=== PATIENT | female | born 1940 | race Caucasian/White ===

== ENCOUNTER 2021-04-26 16:58 | Emergency (ER) | payer MEDICARE ==
[~2021-04-26] VITALS: Ht 152.4 cm; Wt 58.5 kg
[~2021-04-26 16:58] MED LIST: AMARYL2 MG; ASPIRIN EC81 M1; GLUCOPHAGE850 MG; LEXAPRO 10 MG T10 M1; LISINOPRIL10 MG; SIMVASTATIN5 MG; VERAPAMIL E.R240 M1
[2021-04-26] MEDS ORDERED: HYDROCODON-ACE1 EAC7 PO (19:05)
[2021-04-26] MEDS ORDERED: NYSTATIN 100,0015 G1 TOP (19:07)
[2021-04-26 19:18] VITALS: BP 120/70
== END 2021-04-26 19:18 | disposition home or self-care (01) ==
LOC: M.ERS 16:58
DX: S22.31XA Fracture of one rib, right side, initial encounter for closed fracture (principal); B37.9 Candidiasis, unspecified; I10 Essential (primary) hypertension; E78.00 Pure hypercholesterolemia, unspecified; E11.9 Type 2 diabetes mellitus without complications; Z90.49 Acquired absence of other specified parts of digestive tract; Z88.0 Allergy status to penicillin; Z88.1 Allergy status to other antibiotic agents; W01.0XXA Fall on same level from slipping, tripping and stumbling without subsequent striking against object, initial encounter; Y93.89 Activity, other specified; Y92.89 Other specified places as the place of occurrence of the external cause; Y99.8 Other external cause status